=== PATIENT | female | born 1950 | race Two or more races ===

== ENCOUNTER → 2022-07-31 11:26 | Outpatient (BNVA) | payer MEDICARE, OTHER, SELFPAY | PROVIDERS: PCP Internal Medicine; Visit Provider Student in an Organized Health Care Education/Training Program | DX: M35.01 Sjogren syndrome with keratoconjunctivitis (principal); M81.0 Age-related osteoporosis without current pathological fracture; R00.2 Palpitations; Z79.899 Other long term (current) drug therapy | CPT/HCPCS: 99202 ==

== ENCOUNTER 2022-08-22 12:59 | Outpatient (REF) | payer MEDICARE, OTHER, SELFPAY ==
--- NOTE | 2022-08-22 17:18 | PFT_ITS ---
FLOWS: FEV1 83% of predicted at 1.68 L. FVC 78% of predicted at 2.10 L. FEV1 to FVC ratio of 0.80. The patient declined bronchodilator testing. LUNG VOLUMES: Total lung capacity 95% of predicted at 4.62 L. Residual volume 114% of predicted at 2.52 L. Slow vital capacity 79% of predicted at 2.10 L. Expiratory reserve volume 92% of predicted at 0.53 L. Diffusion capacity is mildly decreased, diffusion capacity corrects to normal after adjustment for alveolar ventilation. IMPRESSION: No obstructive or restrictive ventilatory defect. The patient declined bronchodilator testing. Essentially normal pulmonary function test. MD LILLY Salazar/MODL / [id number]
== END 2022-08-22 13:00 | disposition home or self-care (01) ==
LOC: HO.RESP 12:59
PROVIDERS: PCP Internal Medicine; Visit Provider Student in an Organized Health Care Education/Training Program
DX: R06.02 Shortness of breath (principal); M35.01 Sjogren syndrome with keratoconjunctivitis
CPT/HCPCS: 94010; 94727; 94729

== ENCOUNTER 2022-08-26 12:28 | Outpatient (REF) | payer MEDICARE, OTHER, SELFPAY ==
[2022-08-26 12:53] LABS: MANUAL DIFF FLAG NO
[2022-08-26 13:55] LABS: Appearance Urine Clear; Color Urine Yellow; Glucose Urine UA Negative (Negative); Leukocyte Esterase Urine Small (1+) (Negative); Nitrite Urine Negative (Negative); UMIC TRIGGER UA YES; Urine Blood Negative (Negative); Urine Ketones Negative (Negative); Urine Protein Negative (Neg-Trace)
[2022-08-26 14:02] LABS: Basophils Percent Auto 0.5 % (0-2); Eosinophils Absolute Auto 0.1 X10*3/uL (0.0-0.4); Eosinophils Percent Auto 1.1 % (0-4); Hematocrit 34.9 % (37.0-47.0); Hemoglobin 11.4 g/dl (12.0-16.0); Imm Gran Abs Auto 0.01 X10*3/uL (0.00-0.03); Imm Gran Pct Auto 0.2 % (0.0-0.4); Lymphocytes Percent Auto 30.6 % (20-40); Mean Corpuscular HGB Conc 32.7 g/dl (31.0-35.0); Mean Corpuscular Hemoglobin 28.1 pg (27.0-33.0); Mean Corpuscular Volume 86.2 fL (80.0-98.0); Mean Platelet Volume 11.1 fL (9.4-12.3); Monocytes Absolute Auto 0.5 X10*3/uL (0.1-1.2); Monocytes Percent Auto 8.3 % (2-11); Neutrophils Absolute Auto 3.8 x10*3/uL (2.0-8.3); Neutrophils Percent Auto 59.3 % (45-73); Platelet Count 189 X10*3/uL (160-400); Red Blood Count 4.05 X10*6/uL (4.20-5.50); Red Cell Distribution Width 12.4 % (11.0-16.0); White Blood Count 6.4 X10*3/uL (4.8-10.8)
[2022-08-26 14:03] LABS: Bacteria Urine None Seen (None Seen); Hyaline Casts Urine 0-2 /LPF (0-2); RBC Urine 0-2 /HPF (0-2); Squamous Epithelial Cell Urine 0-2 /HPF (0-2); WBC Urine 0-5 /HPF (0-5)
[2022-08-26 14:37] LABS: Creatinine Urine 60.61 mg/dL; Total Protein Urine Random < 7 mg/dL (<12)
[2022-08-26 14:42] LABS: Alanine Aminotransferase 10 U/L (0-31); Albumin Level 3.9 g/dL (3.5-5.0); Alkaline Phosphatase 62 U/L (39-117); Anion Gap 8 (12-20); Aspartate Amino Transferase 14 U/L (5-31); Bilirubin Total 0.4 mg/dL (0.0-1.0); Blood Urea Nitrogen 17 mg/dL (9-16); C Reactive Protein < 0.10 mg/dL (< or = 0.50); Calcium 9.6 mg/dL (8.4-10.2); Carbon Dioxide 28 mmol/L (22-29); Chloride 104 mmol/L (96-108); Estimated Glomerular Filt Rate 48; Glucose Random 74 mg/dL (60-115); Potassium 4.2 mmol/L (3.3-5.1); Rheumatoid Factor < 13.0 IU/mL (<15.0); Sodium 136 mmol/L (135-145); Total Protein 6.9 g/dL (6.5-8.0)
[2022-08-26 14:45] LABS: Erythrocyte Sedimentation Rate 16 MM/HR (0-20)
[2022-08-26 14:56] LABS: Thyroid Stimulating Hormone 2.29 uIU/mL (0.32-4.0)
[2022-08-27 13:24] LABS: Anti DNA DS Antibody 9 IU/mL; Antibody to SS-A Antigen <1.0 NEG AI (<1.0 NEG); Antibody to SS-B Antigen 3.3 POS AI (<1.0 NEG); SM/Ribonucleoprotein Ab <1.0 NEG AI (<1.0 NEG); Smith Protein <1.0 NEG AI (<1.0 NEG)
[2022-08-27 13:58] LABS: Complement C3 99 mg/dL (83-193)
[2022-08-27 15:24] LABS: Anti Nuclear Antibody Screen NEGATIVE (NEGATIVE)
[2022-08-28 04:59] LABS: HBS Num1 0.31 mIU/mL (0-7.99); HBsAGNum1 0.28 S/CO (0.00-0.99); Hepatitis A Antibody IgM 0.11 Index (0-0.79); Hepatitis B Core Antibody Nonreactive (Nonreactive); Hepatitis B Surface Antigen Negative (Negative); ~HepC Num1 0.09 S/CO (0.00-0.79); ~Hepatitis A Antibody IgM Nonreactive (Nonreactive); ~Hepatitis B Surface Antibody NONREACTIVE (Nonreactive); ~Hepatitis C Antibody Nonreactive (Nonreactive)
[2022-08-28 11:23] LABS: TS Negative Control Passed; TS Panel A 0; TS Panel B 0; TS Positive Control Passed; TSpotTB Negative (Negative)
[2022-08-28 12:33] LABS: IgA 237 mg/dL (70-320); IgG 1639 mg/dL (600-1540); IgM 89 mg/dL (50-300)
[2022-08-29 11:33] LABS: Cyclic Citrullinated Peptide <16 UNITS
[2022-08-31 13:54] LABS: Angiotensin Converting Enzyme 51.1 U/L (9-67)
[2022-09-03 10:12] LABS: Cryoglobulin, Qual NONE DETECTED ((NDT))
== END 2022-08-26 12:29 | disposition home or self-care (01) ==
LOC: HO.LAB 12:28
PROVIDERS: PCP Internal Medicine; Visit Provider Student in an Organized Health Care Education/Training Program
DX: M35.01 Sjogren syndrome with keratoconjunctivitis (principal); R53.83 Other fatigue; Z11.7 Encounter for testing for latent tuberculosis infection; Z11.59 Encounter for screening for other viral diseases; Z72.89 Other problems related to lifestyle
CPT/HCPCS: 36415; 80053; 81001; 82164; 82550; 82595; 82784; 84156; 84443; 85025; 85652; 86038; 86039; 86140; 86160; 86200; 86225; 86235; 86334; 86431; 86481; 86704; 86706; 86709; 86803; 87340

== ENCOUNTER → 2022-10-30 11:43 | Outpatient (BNVA) | payer MEDICARE, OTHER, SELFPAY | PROVIDERS: PCP Internal Medicine; Visit Provider Student in an Organized Health Care Education/Training Program | DX: M35.01 Sjogren syndrome with keratoconjunctivitis (principal); M81.0 Age-related osteoporosis without current pathological fracture; Z79.899 Other long term (current) drug therapy | CPT/HCPCS: 99212 ==

== ENCOUNTER 2023-05-22 12:01 | Outpatient (AMB) | payer MEDICARE, OTHER, SELFPAY ==
--- NOTE | 2023-05-22 12:06 | MHC.OFFVIS ---
Intake Vital Signs 05/22/23 12:07 Height 5 ft 2 in Weight 119 lb 4.321 oz BMI 21.8 BP 146/88 H Blood Pressure Location Rt brachial Position Sitting Pulse 66 Pulse Source Pulse Oximeter Temp 97.4 F Temp Source Skin Pulse Oximetry (%) 100 Intake Visit Reasons: Sjogren's Intake Note: Pt seen today fpr SS follow up Toggler Required: No Accompanied by: Self / Same As Patient Allergies Seasonal Allergies Allergy (Unknown, Verified 05/22/23 12:10) Unknown mold, dust Allergy (Unknown, Uncoded 05/22/23 12:10) Unknown Medication List - Last Reconciled 05/22/23 by Wolf Villegas MD famotidine 40 mg PO DAILY hydroxychloroquine (Plaquenil) 200 mg PO DAILY propranolol 20 mg PO TID trazodone 50 mg PO BEDTIME HPI HPI Comments History of Present Illness Details 72-year-old female with Sjogren's returns for follow-up. States that she had COVID infection last month and fully recovered. Remains on hydroxychloroquine 200 mg daily. States that she feels well overall. She has been having trouble sleeping recently. She only sleeps 5 hours. She states that her isn't doing too well recently and she believes it is causing her some anxiety. She used to follow-up with a therapist regularly but the therapist retired about a year ago. She takes trazodone nightly but she does not feel it helping her sleep. Her dry eyes and dry mouth are about the same. Symptoms are stable. she denies any chest pain, cough or shortness of breath. Recently she has been having bilateral lower back pain, nonradiating. Initial history: This is a 71-year-old female with a past medical history of Sjogren's diagnosed around 2019, osteoporosis on alendronate who presents for evaluation of Sjogren's disease. Patient used to follow up with Dr. Saeed but Dr. Saeed left the practice. Patient was started on hydroxychloroquine 2-3 years ago which did help with fatigue. Patient denied ever having any joint pains. She has used Biotene toothpaste, mouthwash is over the years and the dryness is better overall. She continues to have dry eyes however. She uses artificial tears 3 times a day but she continues to have some itchy eyess. Pilocarpine caused cholinergic side effects. Patient denies any fevers, weight loss. Denies Raynaud's. Denies any blood or frothy urine. Her main complaint today is difficulty falling asleep after waking up in the middle of the night. Patient used to have palpitations over the last few years however the became worse over the last few months. She was evaluated by paperhanger contractor and had Holter monitoring which showed PACs and episodes of tachycardia. Was recently started on propranolol. 2D echo was also recently completed. [facility]LY [facility] Medical History (Updated 05/22/23 @ 12:56 by Wolf Villegas MD) Insomnia Anxiety Hx of Sjogren's disease Palpitations Osteoporosis Diverticulosis GERD (gastroesophageal reflux disease) Panic attacks Hyperthyroidism Basal cell carcinoma Surgical History S/P removal of right ovary History of 2 sections Family History Father CHF (congestive heart failure) Mother Hypertension Hypothyroidism Social History Household Members: Spouse Household Members Other:: Son Alcohol intake: current Alcohol intake frequency: does not drink Patient Tobacco Use Status: Never used Tobacco Current occupational status: retired 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 Review of Systems Eyes Reports dry eyes Card Denies dyspnea Resp Denies dyspnea Skin/Breast Reports system reviewed and no additional complaints, except as documented Physical Exam Vital Signs: Last Vital Signs Temp 97.4 F 05/22/23 12:07 Pulse 66 05/22/23 12:07 BP 146/88 H 05/22/23 12:07 Pulse Ox 100 05/22/23 12:07 BMI result Body Mass Index 21.8 Const General: cooperative, healthy appearing, comfortable, no acute distress and well developed Nutritional Appearance: average body habitus and well nourished Orientation/consciousness: patient oriented x3 Limitations: no limitations HEENT Head: Yes normocephalic and Yes atraumatic Mouth: moist mucous membranes Resp Effort & Inspection: normal respiratory effort and able to speak in complete sentences GI Inspection: No distended Palpation (GI): Soft to palpation and nontender Back/Spine/Pelvis Other: No point tenderness upon palpation of her spine Negative straight leg raise test bilaterally Skin General skin exam: no rashes or lesions noted Neuro General: patient oriented x3 Extrem Other: No active synovitis Normal nailfold capillaroscopy Normal range of motion of upper extremities Normal gait Results Reviewed Results Reviewed: Labs 11/2018? KATHY 1-160 nucleolar SSA negative SSB 4.8? Sed rate 20 Labs 12/2021? Sed rate 10 CRP normal CBC unremarkable CMP unremarkable except for creatinine 1.1 GFR 53.1 TSH 2.96 Assessment & Plan Assessment & Plan (1) Sjogren syndrome with keratoconjunctivitis: Comment: dx 2019 (dry eyes, dry mouth, fatigue, KATHY 1-160 nucleolar, ++SSb) HCQ started 2018 Code(s): M35.01 - Sjogren syndrome with keratoconjunctivitis Plan: This is a 72-year-old female with Sjogren's disease presents for follow-up. Doing well on hydroxychloroquine 200 mg daily Spirometry done 09/02 unremarkable Continue hydroxychloroquine 200 mg daily Continue conservative measures for dryness, (Biotene toothpaste, Biotene mouthwash, artificial tears, sugar free lozenges...etc) patient had cholinergic side effects with pilocarpine Patient had burning in her eyes with Restasis. Continue artificial tears for now. Symptoms are stable. Follow-up in 1 year (2) Osteoporosis: Code(s): M81.0 - Age-related osteoporosis without current pathological fracture Qualifiers: Osteoporosis type: age-related Presence of current pathological fracture: without current pathological fracture Qualified Code(s): M81.0 - Age-related osteoporosis without current pathological fracture Plan: Managed by PCP. Currently on alendronate. (3) Insomnia: Code(s): G47.00 - Insomnia, unspecified Qualifiers: Insomnia type: psychophysiologic Qualified Code(s): F51.04 - Psychophysiologic insomnia Plan: Likely due to underlying anxiety. Advised patient to establish care with a psychotherapist. She is using trazodone 50 mg nightly without improvement and without worsening of sicca symptoms. Melatonin was not helpful. Advised patient to discuss with her PCP consider other medicines such as zolpidem. Plan I spent 29 minutes reviewing patient's chart, evaluating patient, counseling patient and documenting in the chart Coding Level of Care Code Est Pt Level 4 (21303) Diagnoses Sjogren syndrome with keratoconjunctivitis M35.01 Age-related osteoporosis without current pathological fracture M81.0 Osteoporosis type: age-related Presence of current pathological fracture: without current pathological fracture Psychophysiological insomnia F51.04 Insomnia type: psychophysiologic
[2023-05-22 12:07] VITALS: BP 146/88; PULSE 66; TEMP 36.3; O2SAT 100; BMI 21.8
== END 2023-05-22 12:36 | disposition home or self-care (01) ==
PROVIDERS: PCP Internal Medicine; Visit Provider Student in an Organized Health Care Education/Training Program
DX: M35.01 Sjogren syndrome with keratoconjunctivitis (principal); M81.0 Age-related osteoporosis without current pathological fracture; F51.04 Psychophysiologic insomnia
CPT/HCPCS: 99214

== ENCOUNTER → 2023-05-22 12:01 | Outpatient (BNVA) | payer MEDICARE, OTHER, SELFPAY | PROVIDERS: PCP Internal Medicine; Visit Provider Student in an Organized Health Care Education/Training Program | DX: M35.01 Sjogren syndrome with keratoconjunctivitis (principal); M81.0 Age-related osteoporosis without current pathological fracture; F51.04 Psychophysiologic insomnia | CPT/HCPCS: 99212 ==

== ENCOUNTER 2024-05-26 11:45 | Outpatient (AMB) | payer MEDICARE, OTHER, SELFPAY ==
--- NOTE | 2024-05-26 11:49 | MHC.OFFVIS ---
Vital Signs 05/26/24 11:52 Height 5 ft 2 in Weight 123 lb 3.814 oz BMI 22.5 BP 112/70 Blood Pressure Location Rt brachial Position Sitting Pulse 60 Pulse Source Pulse Oximeter Pulse Oximetry (%) 99 Oxygen Delivery Method Room Air Intake Visit Reasons: Sjogren's Intake Note: Patient presents for Sjogren's. Allergies Seasonal Allergies Allergy (Unknown, Verified 05/26/24 11:52) Unknown mold, dust Allergy (Unknown, Uncoded 09/11/23 07:08) Unknown Medication List - Last Reconciled 05/26/24 by Wolf Villegas MD famotidine 40 mg PO DAILY hydroxychloroquine (Plaquenil) 200 mg PO DAILY propranolol 20 mg PO TID trazodone 50 mg PO BEDTIME HPI Comments Details: 73-year-old female with Sjogren's returns for follow-up. She states that she feels about the same overall. Has been having more back pain recently. She had a back x-ray which showed arthritis. She went to 6 sessions of PT. It did not help much. It hurts with certain positions. It is not severe and does not radiate down her lower extremities. With regards to her sicca symptoms. They are about the same overall. She uses Biotene toothpaste. She did not find that Biotene mouthwash was helpful. Artificial tears 3 times a day. Denies any cough or shortness of breath. She states that she had a 2D echo recently ordered by her grinding and polishing laborer. She was told that she might have a leaky valve. Initial history: This is a 71-year-old female with a past medical history of Sjogren's diagnosed around 2019, osteoporosis on alendronate who presents for evaluation of Sjogren's disease. Patient used to follow up with Dr. Saeed but Dr. Saeed left the practice. Patient was started on hydroxychloroquine 2-3 years ago which did help with fatigue. Patient denied ever having any joint pains. She has used Biotene toothpaste, mouthwash is over the years and the dryness is better overall. She continues to have dry eyes however. She uses artificial tears 3 times a day but she continues to have some itchy eyess. Pilocarpine caused cholinergic side effects. Patient denies any fevers, weight loss. Denies Raynaud's. Denies any blood or frothy urine. Her main complaint today is difficulty falling asleep after waking up in the middle of the night. Patient used to have palpitations over the last few years however the became worse over the last few months. She was evaluated by grinding and polishing laborer and had Holter monitoring which showed PACs and episodes of tachycardia. Was recently started on propranolol. 2D echo was also recently completed. [facility] Medical History Insomnia Anxiety Hx of Sjogren's disease Palpitations Osteoporosis Diverticulosis GERD (gastroesophageal reflux disease) Panic attacks Hyperthyroidism Basal cell carcinoma Surgical History S/P removal of right ovary History of 2 sections Family History Father CHF (congestive heart failure) Mother Hypertension Hypothyroidism Social History Household Members: Spouse Household Members Other:: Son Alcohol intake: current Alcohol intake frequency: does not drink Patient Tobacco Use Status: Never used Tobacco Current occupational status: retired 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 Review of Systems Eyes Reports dry eyes Card Denies dyspnea Resp Denies dyspnea Musc Reports back pain Skin/Breast Reports system reviewed and no additional complaints, except as documented Physical Exam Vital Signs: Last Vital Signs Pulse 60 05/26/24 11:52 BP 112/70 05/26/24 11:52 Pulse Ox 99 05/26/24 11:52 Oxygen Delivery Method Room Air 05/26/24 11:52 BMI result Body Mass Index 22.5 Const General: cooperative, healthy appearing, comfortable, no acute distress and well developed Nutritional Appearance: average body habitus and well nourished Orientation/consciousness: patient oriented x3 Limitations: no limitations HEENT Head: Yes normocephalic and Yes atraumatic Mouth: moist mucous membranes Resp Effort & Inspection: normal respiratory effort and able to speak in complete sentences Auscultation: clear to auscultation bilaterally Cardio Rate: regular rate Rhythm: regular rhythm GI Inspection: No distended Palpation (GI): Soft to palpation and nontender Back/Spine/Pelvis Other: No point tenderness upon palpation of her spine Negative straight leg raise test bilaterally Skin General skin exam: no rashes or lesions noted Neuro General: patient oriented x3 Extrem Other: No active synovitis Normal nailfold capillaroscopy Normal range of motion of upper extremities Normal gait Results Reviewed Results Reviewed: Labs 11/2018? KATHY 1-160 nucleolar SSA negative SSB 4.8? Sed rate 20 Labs 12/2021? Sed rate 10 CRP normal CBC unremarkable CMP unremarkable except for creatinine 1.1 GFR 53.1 TSH 2.96 Assessment & Plan Assessment & Plan (1) Sjogren syndrome with keratoconjunctivitis: Comment: dx 2019 (dry eyes, dry mouth, fatigue, KATHY 1-160 nucleolar, ++SSb) HCQ started 2018 Code(s): M35.01 - Sjogren syndrome with keratoconjunctivitis Category: Medical Plan: This is a 73-year-old female with Sjogren's disease presents for follow-up. Doing well on hydroxychloroquine 200 mg daily Spirometry done 09/02 unremarkable Continue hydroxychloroquine 200 mg daily Continue conservative measures for dryness, (Biotene toothpaste, regular sips of water, per patient Biotene mouthwash did not help much) patient had cholinergic side effects with pilocarpine Patient had burning in her eyes with Restasis. Continue artificial tears for now. Symptoms are stable. Labs before next visit in 1 year. PFTs before next visit in 1 year. Patient states that she had a recent 2D echo by her grinding and polishing laborer. I asked patient to ask her grinding and polishing laborer's office to send me the result. Follow-up in 1 year (2) Long-term use of hydroxychloroquine: Code(s): Z79.899 - Other half-way (current) drug therapy Category: Medical Plan: Follows up regularly with Ophthalmology. Will records from patient's associate product integrity engineer (3) Back pain: Code(s): M54.9 - Dorsalgia, unspecified Category: Medical Qualifiers: Back pain location: low back pain Chronicity: chronic Back pain laterality: bilateral Sciatica presence: without sciatica Qualified Code(s): M54.50 - Low back pain, unspecified; G89.29 - Other chronic pain Plan: Minimal symptoms. Did not improved much with PT. Advised patient to try using a heating pad. Take Tylenol as needed. If no improvement, can consider pain management evaluation Plan I spent 26 minutes reviewing patient's chart, evaluating patient, ordering diagnostic workup, counseling patient and documenting in the chart Orders: Orders PFT pulmonary function test 04/11/25 M35. - Sjogren syndrome with keratoconjunctivitis, R06.02 - Shortness of breath Complete Blood Count Auto Diff 1 Year - Sjogren syndrome with keratoconjunctivitis Comprehensive Met. Panel 1 Year - Sjogren syndrome with keratoconjunctivitis Immunofixation Pnl, Serum 1 Year - Sjogren syndrome with keratoconjunctivitis Protein Electrophoresis, Serum 1 Year - Sjogren syndrome with keratoconjunctivitis C Reactive Protein 1 Year - Sjogren syndrome with keratoconjunctivitis Erythrocyte Sedimentation Rate 1 Year - Sjogren syndrome with keratoconjunctivitis Medications: Refilled hydroxychloroquine (Plaquenil) 200 mg PO DAILY 90 tabs 1RF Coding Level of Care Code Est Pt Level 4 (52153) Complex EM visit Add On G2211 Diagnoses Sjogren syndrome with keratoconjunctivitis Long-term use of hydroxychloroquine Z79.899 Chronic bilateral low back pain without sciatica M54.50; G89.29 Back pain location: low back pain Chronicity: chronic Back pain laterality: bilateral Sciatica presence: without sciatica
[2024-05-26 11:52] VITALS: BP 112/70; PULSE 60; O2SAT 99; BMI 22.5
== END 2024-05-26 12:15 | disposition home or self-care (01) ==
PROVIDERS: PCP Internal Medicine; Visit Provider Student in an Organized Health Care Education/Training Program
DX: M35.01 Sjogren syndrome with keratoconjunctivitis (principal); Z79.899 Other long term (current) drug therapy; M54.50 Low back pain, unspecified; G89.29 Other chronic pain
CPT/HCPCS: 99214; G2211

== ENCOUNTER → 2024-05-26 11:45 | Outpatient (BNVA) | payer MEDICARE, OTHER, SELFPAY | PROVIDERS: PCP Internal Medicine; Visit Provider Student in an Organized Health Care Education/Training Program | DX: M35.01 Sjogren syndrome with keratoconjunctivitis (principal); M54.50 Low back pain, unspecified; G89.29 Other chronic pain; Z79.899 Other long term (current) drug therapy | CPT/HCPCS: 99212 ==

== ENCOUNTER 2025-05-25 12:22 | Outpatient (AMB) | payer MEDICARE, OTHER, SELFPAY ==
--- NOTE | 2025-05-25 12:43 | MHC.OFFVIS ---
Vital Signs 05/25/25 12:44 Height 5 ft 2 in Weight 115 lb 8.356 oz BMI 21.1 BP 130/80 Blood Pressure Location Lt brachial Position Sitting Pulse 69 Pulse Source Pulse Oximeter Pulse Oximetry (%) 98 Oxygen Delivery Method Room Air Intake Visit Reasons: Sjogren's Intake Note: Patient presents for Sjogren's syndrome [id number] up. Accompanied by: Self / Same As Patient Allergies Seasonal Allergies Allergy (Unknown, Verified 05/25/25 12:43) Unknown mold, dust Allergy (Unknown, Uncoded 09/11/23 07:08) Unknown Medication List - Last Reconciled 05/25/25 by Leah Yu MD famotidine 40 mg PO DAILY hydroxychloroquine (Plaquenil) 200 mg PO DAILY propranolol 20 mg PO TID trazodone 50 mg PO BEDTIME HPI Comments Details: Patient is a 74-year-old female with GERD, Osteoporosis and Sjogren's syndrome here today for follow up Interval History: Patient last seen 05/26/[address] Villegas - On Hydroxychloroquine 200mg daily - She states that she feels about the same overall. Has been having more back pain recently. She had a back x-ray which showed arthritis. She went to 6 sessions of PT. It did not help much. - It hurts with certain positions. It is not severe and does not radiate down her lower extremities. - With regards to her sicca symptoms. They are about the same overall. She uses Biotene toothpaste. She did not find that Biotene mouthwash was helpful. Artificial tears 3 times a day. Denies any cough or shortness of breath. She states that she had a 2D echo recently ordered by her senior mechanical designer. She was told that she might have a leaky valve. Today - On Hydroxychloroquine 200mg daily - still with fatigue - dry eyes and dry mouth stable - no joint complaints Rheumatologic History: dx 2019 (dry eyes, dry mouth, fatigue, KATHY 1-160 nucleolar, ++SSb) HCQ started 2019 Trialed pilocarpine but had cholinergic side effects Restasis caused burning in her eyes Initial history: This is a 71-year-old female with a past medical history of Sjogren's diagnosed around 2019, osteoporosis on alendronate who presents for evaluation of Sjogren's disease. Patient used to follow up with Dr. Saeed but Dr. Saeed left the practice. Patient was started on hydroxychloroquine 2-3 years ago which did help with fatigue. Patient denied ever having any joint pains. She has used Biotene toothpaste, mouthwash is over the years and the dryness is better overall. She continues to have dry eyes however. She uses artificial tears 3 times a day but she continues to have some itchy eyess. Pilocarpine caused cholinergic side effects. Patient denies any fevers, weight loss. Denies Raynaud's. Denies any blood or frothy urine. Her main complaint today is difficulty falling asleep after waking up in the middle of the night. Patient used to have palpitations over the last few years however the became worse over the last few months. She was evaluated by senior mechanical designer and had Holter monitoring which showed PACs and episodes of tachycardia. Was recently started on propranolol. 2D echo was also recently completed. Current Rheumatology Medication(s): Hydroxychloroquine 200mg daily PFSH Medical History Insomnia Anxiety Hx of Sjogren's disease Palpitations Osteoporosis Diverticulosis GERD (gastroesophageal reflux disease) Panic attacks Hyperthyroidism Basal cell carcinoma Surgical History S/P removal of right ovary History of 2 sections Family History Father CHF (congestive heart failure) Mother Hypertension Hypothyroidism Social History Household Members: Spouse Household Members Other:: Son Alcohol intake: current Alcohol intake frequency: does not drink Patient Tobacco Use Status: Never used Tobacco Current occupational status: retired 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 Well appearing and in no apparent painful distress MSK Hands Right Hand: Able to make a fist. No swelling or tenderness to palpation of the MCPs, PIPs or DIPs. Left Hand: Able to make a fist. No swelling or tenderness to palpation of the MCPs, PIPs or DIPs. Wrists Right Wrist: Full ROM to flexion and extension. No swelling or TTP Left Wrist: Full ROM to flexion and extension. No swelling or TTP Elbows Right Elbow: Full ROM. No swelling or TTP. No TTP of the medial epicondyle. No TTP of the lateral epicondyle Left Elbow: Full ROM. No swelling or TTP. No TTP of the medial epicondyle. No TTP of the lateral epicondyle Shoulders Right shoulder: Full ROM. No swelling noted. No TTP of the AC joint. No TTP of the subacromial bursa. No TTP of the posterior shoulder Left shoulder: Full ROM. No swelling noted. No TTP of the AC joint. No TTP of the subacromial bursa. No TTP of the posterior shoulder Knees Right knee: No swelling noted. No TTP of the knee joint line. No TTP of pes anserine bursa Left knee: No swelling noted. No TTP of the knee joint line. No TTP of pes anserine bursa. Ankles Right ankle: Good ankle dorsiflexion and plantar flexion. No swelling. No TTP of the ankle joint Left ankle: Good ankle dorsiflexion and plantar flexion. No swelling. No TTP of the ankle joint Feet Right foot: Negative squeeze test Left foot: Negative squeeze test Tender points? No tenderness to palpation of the bilateral trapezius, supraspinatus, anterior costochondral junctions, bilateral suboccipital muscle insertions SKIN No rashes Vital Signs: Last Vital Signs Pulse 69 05/25/25 12:44 BP 130/80 05/25/25 12:44 Pulse Ox 98 05/25/25 12:44 Oxygen Delivery Method Room Air 05/25/25 12:44 BMI result Body Mass Index 21.1 Results Reviewed Results Reviewed: 03/23/25 VMG WBC 6.08 Hb 10.8 Plt 234 BUN 21 Cr 1.2 eGFR 46.9 AST 14 ALT 25 SPEP Normal ESR 33 H CRP 1.6 Assessment & Plan Assessment & Plan (1) Sjogren syndrome with keratoconjunctivitis: Comment: dx 2019 (dry eyes, dry mouth, fatigue, KATHY 1-160 nucleolar, ++SSb) HCQ started 2019 Code(s): M35.01 - Sjogren syndrome with keratoconjunctivitis Category: Medical Plan: #Sjogren's syndrome Patient is a 74-year-old female with Sjogren's syndrome here today for follow up. Stable on hydroxychloroquine. Unfortunately her fatigue, which is likely multifactorial, persists though she does say that after getting a good night sleep she is better. Discussed with patient that fatigue is a difficult symptom to treat and unfortunately immunosuppression does not help. In addition sicca symptoms from Sjogren's syndrome do not respond to immunosuppression but she can continue doing her conservative measures Plan - Hydroxychloroquine 200mg daily - patient is up-to-date with her ophthalmology - ECHO done with senior mechanical designer, not seen but was told to patient there was no concerns - F/u PFTs - RTC 1 year - Labs before visit: CBC, CMP, ESR, CRP, C3, C4, RF, Vit D, SPEP (2) Osteoporosis: Code(s): M81.0 - Age-related osteoporosis without current pathological fracture Category: Medical Qualifiers: Osteoporosis type: age-related Presence of current pathological fracture: without current pathological fracture Qualified Code(s): M81.0 - Age-related osteoporosis without current pathological fracture Plan: #Osteoporosis Patient is a 74-year-old female with history of osteoporosis. Has been a very long time since she has been on alendronate. No DEXA scan seen in chart. Need to update same Plan - DEXA - encouraged vitamin-D supplementation (3) Long-term use of hydroxychloroquine: Code(s): Z79.899 - Other assistant terminal manager (current) drug therapy Category: Medical Plan: #Long-term Use of Hydroxychloroquine Discussed with patient the risks and benefits of hydroxychloroquine in managing the rheumatic condition Benefits include: - Reduced pain, reduce mortality, maintenance of remission and reduction of flares Risks include: - GI upset, skin hyperpigmentation, retinal toxicity (especially after more than 5 years of use), myopathy Advised yearly ophthalmology visits Plan This is my 1st visit with the patient. I spent 40 minutes reviewing the record and labs, taking a history, examining the patient, discussing the treatment plan, ordering diagnostic work up and documenting in the medical record Orders: Orders XR DEXA axial skeleton Today M81.0 - Age-related osteoporosis without current pathological fracture Vitamin D 25-OH Total 1 Year E55.9 - Vitamin D deficiency, unspecified Medications: Refilled hydroxychloroquine (Plaquenil) 200 mg PO DAILY 90 tabs 4RF M35.01 - Sjogren syndrome with keratoconjunctivitis Coding Level of Care Code Est Pt Level 5 (35587) Complex EM visit Add On G2211 Diagnoses Sjogren syndrome with keratoconjunctivitis M35.01 Age-related osteoporosis without current pathological fracture M81.0 Osteoporosis type: age-related Presence of current pathological fracture: without current pathological fracture Long-term use of hydroxychloroquine Z79.899
[2025-05-25 12:44] VITALS: BP 130/80; PULSE 69; O2SAT 98; BMI 21.1
--- OUTSIDE RECORDS SUMMARY | 2025-05-25 15:38 | XMS_ITS | Encounter Summary ---
Author Organization [facility] Address [address] [facility] [address] [facility] [address] [place] [address] Phone Care Team Providers Care Paper Machine Operator Name Role Phone Padmini Wyman MD Primary Care Provide Codi Gaspar DO Primary Care Provider [phone] Lisy Rayo NP Primary Care Provider [phone] Kip Gastelum MD Primary Care Provider [phone] Encounter Details Date Type Department Care Team (Late st Contact Info) Description 05/07/2018 Procedure Pass [facility], Ct Scan - [address] [address] Social History Tobacco Use Types Packs/Day Years Used Date Smoking Tobacco: Never Assessed Comments Unknown Sex and Gender Information Value Date Recorded Sex Assigned at Not on file Legal Sex Female 10:05 PM EDT Gender Identity Not on file Sexual Orientation Not on file documented as of this encounter Plan of Treatment Not on file documented as of this encounter Visit Diagnoses Not on filedocumented in this encounter Care Teams Paper Machine Operator Relationship Specialty Start Date End Date Padmini Wyman MD PCP - General 08/14/17 08/25/18 Codi Obrien DO [address] [place] [address] PCP - General Internal Medicine 08/26/18 06/06/19 Lisy Rayo NP [address] [place] [address] PCP - General 06/07/19 03/08/20 Kip Gastelum MD [address] [place] [address] [email or web address] PCP - General Internal Medicine 03/09/20 documented as of this encounter Additional Source Comments The information contained in this document represents components of the legal health record. It is not the complete legal health record.[facility]
--- OUTSIDE RECORDS SUMMARY | 2025-05-25 15:38 | XMS_ITS | Encounter Summary ---
Author Organization [facility] Address [address] [place] [address] [place] [address] Phone Care Team Providers Care Computer Systems Auditor Name Role Phone Padmini Wyman MD Primary Care Provide Codi Gaspar DO Primary Care Provider [phone] Lisy Rayo NP Primary Care Provider [phone] Kip Gastelum MD Primary Care Provider [phone] Reason for Referral * Outpatient Procedure - Closed Specialty Diagnoses / Procedures Referred By Padmini shukla Referred To Contact Radiology Diagnoses Multinodular goiter Primary hyperthyroidism Procedures NM Thyroid Uptake and Scan I123 System, Provider Not In, PhD [facility] [employer] [address] [place] [address] Referral ID Status Reason Start Date Expiration Date Visits Re quested Visits Authorized [id number] Closed 08/17/2018 08/17/2019 1 1 Encounter Details Date Type Department Care Team (Latest Contact Info) Description 08/17/2018 Ancillary Orders [facility] Department [address] [place] [address] System, Provider Not In, PhD [employer] [address] [place] [id number] Multinodular goiter; Primary hyperthyroidism Social History Tobacco Use Types Packs/Day Years Used Date Smoking Tobacco: Never Assessed Comments Unknown Sex and Gender Information Value Date Recorded Sex Assigned at Not on file Legal Sex Female 10:05 PM EDT Gender Identity Not on file Sexual Orientation Not on file documented as of this encounter Plan of Treatment Not on file documented as of this encounter Results * NM Thyroid Uptake and Scan I123 (08/27/2018 9:08 AM EST) Anatomical Region Laterality Modality Neck Nuclear Medicine 08/27/2018 9:33 AM EST Impressions 08/27/2018 9:36 AM EST No evidence of hypoactive or hyperactive thyroid nodules. Thyroid uptake at 24 hours is within normal limits. POS - [id number] Narrative 08/27/2018 9:36 AM EST HISTORY: Hyperthyroidism. COMPARISON: There are no prior studies for comparison. DOSE: 294 uCi of I-123 FINDINGS: There is generally homogenous radiotracer distributed throughout both thyroid lobes. The lobes appear symmetric and do not appear grossly enlarged. No evidence of hypoactive or hyperactive nodules. Thyroid uptake at 24 hours equals 20.7% which is within the normal range. Procedure Note Jeffrey Ragsdale MD - 08/27/2018 HISTORY: Hyperthyroidism. COMPARISON: There are no prior studies for comparison. DOSE: 294 uCi of I-123 FINDINGS: There is generally homogenous radiotracer distributed throughout boththyroid lobes. The lobes appear symmetric and do not appear grosslyenlarged. No evidence of hypoactive or hyperactive nodules. Thyroid uptake at 24 hours equals 20.7% which is within the normalrange. IMPRESSION: No evidence of hypoactive or hyperactive thyroid nodules. Thyroid uptakeat 24 hours is within normal limits. POS - [id number] us Provider Not In System PhD IMG NM ENDOCRINE Nina varghese Result documented in this encounter Visit Diagnoses Diagnosis Multinodular goiter Nontoxic multinodular goiter Primary hyperthyroidism Multinodular goiter Nontoxic multinodular goiter Primary hyperthyroidism documented in this encounter Care Teams Computer Systems Auditor Relationship Specialty Start Date End Date Padmini Wyman MD PCP - General 08/14/17 08/25/18 Codi Obrien DO [address] [place] [address] PCP - General Internal Medicine 08/26/18 06/06/19 Lisy Rayo NP [address] [place] [address] PCP - General 06/07/19 03/08/20 Kip Gastelum MD [address] [place] [address] [email or web address] PCP - General Internal Medicine 03/09/20 documented as of this encounter Additional Source Comments The information contained in this document represents components of the legal health record. It is not the complete legal health record.[facility]
--- OUTSIDE RECORDS SUMMARY | 2025-05-25 15:38 | XMS_ITS | Encounter Summary ---
Author Organization [facility] Address [address] [place] [address] [place] [address] Phone Care Team Providers Care Legal Adviser Name Role Phone Padmini Wyman MD Primary Care Provide Codi Gaspar DO Primary Care Provider [phone] Lisy Rayo NP Primary Care Provider [phone] Kip Gastelum MD Primary Care Provider [phone] Reason for Referral * MRI/CAT Scan - Closed Specialty Diagnoses / Procedures Referred By Padmini shukla Referred To Contact Radiology Diagnoses Other acute sinusitis, recurrence not specified Procedures CT Face Romelia Hogue MD Phone: tel: fax: [email or web address] Referral ID Status Reason Start Date Expiration Date Visits Re quested Visits Authorized [id number] Closed 05/07/2018 05/07/2019 1 1 Encounter Details Date Type Department Care Team (Late st Contact Info) Description 05/07/2018 Ancillary Orders Virtual Department [address] [place] [address] Romelia Hogue MD [address] [place] [address] [email or web address] Other acute sinusitis, recurrence not specified Social History Tobacco Use Types Packs/Day Years Used Date Smoking Tobacco: Never Assessed Comments Unknown Sex and Gender Information Value Date Recorded Sex Assigned at Not on file Legal Sex Female 10:05 PM EDT Gender Identity Not on file Sexual Orientation Not on file documented as of this encounter Plan of Treatment Not on file documented as of this encounter Results * CT FACE WITHOUT CONTRAST (05/27/2018 11:31 AM EDT) Anatomical Region Laterality Modality Face Computed Tomogra phy 05/27/2018 1:49 PM EDT Impressions 05/27/2018 1:56 PM EDT Polypoid mucosal thickening or small mucous retention cyst on the right side of the sphenoid sinus. Remainder paranasal sinuses are essentially clear. Bilateral ostiomeatal units are patent. TOTAL CTDIvol: 45.8 mGy POS - [id number] Narrative 05/27/2018 1:56 PM EDT EXAM: CT FACE WITHOUT INTRAVENOUS CONTRAST COMPARISON: None TECHNIQUE: CT of the facial bones without contrast. Sagittal and coronal reformats generated. Manual dose reduction technique optimized for patient size and area of concern. FINDINGS: SOFT TISSUES: Soft tissues overlying the facial bones appear normal. NASAL BONES: The nasal bones are free of displaced fracture. PARANASAL SINUSES: The escalera of the maxillary, frontal, and ethmoid air cells and sphenoid sinus chambers are intact bilaterally. Polypoid mucosal thickening or small mucous retention cyst on the right side of the sphenoid sinus. Remainder paranasal sinuses are essentially clear. Bilateral ostiomeatal units are patent. Visualized mastoid air cells are clear. ORBITS: Globes and retrobulbar fat appear intact. Previous bilateral lens extraction. The roof, floor, superior and inferior orbital rims, and lateral wall of the orbits are intact bilaterally. Lamina papyracea are intact. REMAINING FACIAL BONES: Zygomatic arches are intact. No pterygoid plate fracture. TEMPOROMANDIBULAR JOINTS: Mild degenerative changes of the right mandibular condyle. Bilateral temporomandibular joints are congruent. Procedure Note Kassi Hannon MD - 05/27/2018 EXAM: CT FACE WITHOUT INTRAVENOUS CONTRAST COMPARISON: None TECHNIQUE: CT of the facial bones without contrast. Sagittal and coronalreformats generated. Manual dose reduction technique optimized for patientsize and area of concern. FINDINGS: SOFT TISSUES: Soft tissues overlying the facial bones appear normal. NASAL BONES: The nasal bones are free of displaced fracture. PARANASAL SINUSES: The escalera of the maxillary, frontal, and ethmoid aircells and sphenoid sinus chambers are intact bilaterally. Polypoidmucosal thickening or small mucous retention cyst on the right side of thesphenoid sinus. Remainder paranasal sinuses are essentially clear.Bilateral ostiomeatal units are patent. Visualized mastoid air cells areclear. ORBITS: Globes and retrobulbar fat appear intact. Previous bilateral lensextraction. The roof, floor, superior and inferior orbital rims, andlateral wall of the orbits are intact bilaterally. Lamina papyracea areintact. REMAINING FACIAL BONES: Zygomatic arches are intact. No pterygoid platefracture. TEMPOROMANDIBULAR JOINTS: Mild degenerative changes of the rightmandibular condyle. Bilateral temporomandibular joints are congruent. IMPRESSION: Polypoid mucosal thickening or small mucous retention cyst on the rightside of the sphenoid sinus. Remainder paranasal sinuses are essentiallyclear. Bilateral ostiomeatal units are patent. TOTAL CTDIvol: 45.8 mGy POS - [id number] Romelia Hogue MD IMG CT HEAD/NECK Fin al Result documented in this encounter Visit Diagnoses Diagnosis Other acute sinusitis, recurrence not specified Other acute sinusitis, recurrence not specified documented in this encounter Care Teams Legal Adviser Relationship Specialty Start Date End Date Padmini Wyman MD PCP - General 08/14/17 08/25/18 Codi Obrien DO [address] [place] [address] PCP - General Internal Medicine 08/26/18 06/06/19 Lisy Rayo NP [address] [place] [address] PCP - General 06/07/19 03/08/20 Kip Gastelum MD [address] [place] [address] [email or web address] PCP - General Internal Medicine 03/09/20 documented as of this encounter Additional Source Comments The information contained in this document represents components of the legal health record. It is not the complete legal health record.[facility]
--- OUTSIDE RECORDS SUMMARY | 2025-05-25 15:38 | XMS_ITS | Clinical Summary ---
Author Organization [facility] Address [address] [place] [address] [place] [phone] Phone Care Team Providers Care Animal Bounty Hunter Name Role Phone Kip Gastelum MD Primary Care Provider [phone]- [phone] Allergies Active Allergy Reactions Criticality Noted Date Comments Mold Extracts 02/14/2020 Other 10/27/2019 Ragweed, pollen Medications propranolol (INDERAL) 10 MG immediate release tablet Take 20 mg by mouth 3 (three) times a day. Active acetaminophen (TYLENOL) 325 mg tablet Take 650 mg by mouth daily as needed. Active hydroCHLOROthia zide (HYDRODIURIL) 12.5 MG tablet Take 12.5 mg by mouth daily. Take half tablet every other day Active hydrOXYchloroQU INE (PLAQUENIL) 200 mg tablet Take 200 mg by mouth daily. Active famotidine (PEPCID) 40 MG tablet Take 40 mg by mouth daily. Active traZODone (DESYREL) 50 MG tablet Take by mouth nightly at bedtime. 08/21/2023 Active Active Problems Problem Noted Date Diagnosed Date Vaginal discharge 02/14/2020 Assessment & Plan (02/14/2020 4:12 PM EDT): No signs of infection, expect just due to atrophy; can try to get same day appt as when she sees the d/c on wiping Breast lobular hyperplasia, atypical 02/14/2020 Overview (02/14/2020): 2015, on excised papilloma Assessment & Plan (02/14/2020 4:12 PM EDT): Recommend she ask med oncologist re dr Morelos's recommendations for annual mammo and breast exam in office, as this is not my area Sleep disturbance 05/31/2019 Sjogren's syndrome with keratoconjunctivitis sic ca 12/17/2018 Immunizations Immunization Administration Dates Next Due INFLUENZA, SPLIT VIRUS, TRIV ALENT W/ PRESERVATIVE IM 07/01/2011,05/16/2010,07/18/2009 Influenza High-Dose Trivalen t Preservative Free IM 06/17/2019 Influenza trivalent preserva tive free intradermal 05/19/2012 Influenza, Unspecified Formulation 06/24,07/19/2005,07/08/2003,2000 Td, unspecified formulation 09/17/2005 Zoster live 11/09/2010 Family History Medical History Relation Comments Heart failure Father CHF Heart disease Maternal Grandfather Hypertension Mother Osteoporosis Mother Arthritis Unspecified Relation Status Comments Brother Alive Father (Age 73) Maternal Grandfather Mother Unspecified Social History Tobacco Use Types Packs/Day Years Used Date Smoking Tobacco: Never Smokeless Tobacco: Never Alcohol Use Standard Drinks/Week Comments Never 0 (1 standard drink = 0.6 oz pur e alcohol) Education Answer Date Recorded Are you interested in more education? Not on miguel e 12/06/2022 Are you concerned about learning? Not on file 12/06/2022 No 12/06/2022 No 12/06/2022 Food Answer Date Recorded Within the past 6 months we worried whether our food would run out before we got money to buy more. Never True 01/15/2025 Within the past 6 months the food we bought just didn't last and we didn't have enough money to get more. Never True Residential Stability Answer Date Recor ded What is your housing situation today? I have shannan sing 01/15/2025 How many times have you move d in the past 12 months? Zero (I did not move) 01/15/2025 Paying for Meds Answer Date Recorded Do you have trouble paying for medicines? No 01/15/2025 Paying Utility Bills Answer Date Record ed Do you have trouble paying your heating or elect ricity bill? No 01/15/2025 Transportation Answer Date Recorded Has the lack of transportati on kept you from medical appointments or from getting medications? No 01/15/2025 Digital Access Answer Date Recorded No 01/15/2025 Yes 01/15/2025 Do you have reliable internet access at home? Ye s 01/15/2025 Do you have a device (e.g., phone, tablet, computer) with a working camera? Yes 01/15/2025 Intimate Partner Violence Answer Date R ecorded Are you denied basic needs s uch as food, clothing, or medical care? No 01/15/2025 In the past 12 months have y ou been in a relationship with a person who hurts, threatens, or tries to control you? No 01/15/2025 Are you denied basic needs s uch as food, clothing, or medical care? No 01/15/2025 In the past 12 months have y ou been in a relationship with a person who hurts, threatens, or tries to control you? No 01/15/2025 Comments No Sex and Gender Information Value Date Recorded Sex Assigned at Not on file Legal Sex Female 10:05 PM EDT Gender Identity Not on file Sexual Orientation Not on file Last Filed Vital Signs Vital Sign Reading Time Taken Comments Blood Pressure 140/86 01/15/2025 12:49 PM EDT Pulse 69 01/15/2025 12:49 PM EDT Temperature 36.4 C (97.6 F) 01/15/2025 11:16 AM EDT Respiratory Rate 18 01/15/2025 12:49 PM EDT Oxygen Saturation 100% 01/15/2025 12:49 PM EDT Inhaled Oxygen Concentration - - Weight 52.2 kg (115 lb) 01/15/2025 11:47 AM EDT Height 157.5 cm (5' 2 ) 01/15/2025 11:47 AM EDT Body Mass Index 21.03 01/15/2025 11:47 AM EDT Plan of Treatment Health Maintenance Due Date Last Done Comments LIPID PANEL 1948 DEPRESSION SCREENING 1960 HEPATITIS C SCREENING 1966 OSTEOPOROSIS SCREENING INITIAL (ONE-TIME) 2013 Adult Td,Tdap Booster 09/17/2015 09/17/2005 ZOSTER VACCINES (3 of 3) 05/01/2023 03/06/2023, 04/0 08/2010 INFLUENZA VACCINE (#1) 2025 , 05/05/2022, 06/05/2021, Additional history exists COVID-19 VACCINE (2024- season) 2025 09/02/2023, 05/05/2022, 11/13/2021, Additional history exists POTASSIUM LEVEL 01/15/2026 01/15/2025 PNEUMOCOCCAL VACCINES (50+ years) Completed 05/16/2015, 12/24/2013 SMOKING STATUS SCREENING (Once After 26 Yrs) Completed 10/23/2020 RSV VACCINE Completed 08/15/2023 HEPATITIS A VACCINES Aged Out No long er eligible based on patient's age to complete this topic HIB VACCINES Aged Out No longer eligi ble based on patient's age to complete this topic MENINGOCOCCAL VACCINES (ACWY) Aged Out No longer eligible based on patient's age to complete this topic MENINGOCOCCAL VACCINES (B) Aged Out N o longer eligible based on patient's age to complete this topic Medical Devices Not on file Procedures Procedure Name Priority Date/Time Associated Diagnosis Comments BASIC METABOLIC PANEL STAT 01/15/2025 11:50 AM EDT from Last 3 Months or Most Recently Relevant to Health Maintenance Results * (ABNORMAL) Basic metabolic panel (01/15/2025 11:50 AM EDT) SODIUM 135 133 - 146 mmol/L [facility] CHLORIDE 99 96 - 108 mmol/L [facility] POTASSIUM 4.3 3.3 - 5.1 mmol/L [facility] CO2 28 21 - 35 mmol/L [facility] BUN 20(H) 6 - 19 mg/dL [facility] CREATININE 1.20 0.5 - 1.5 mg/dL [facility] GLUCOSE 98 70 - 99 mg/dL [facility] CALCIUM 10.1 8.4 - 10.3 mg/dL [facility] EGFR 47(L) >59 mL/min/1.7 3m2 [facility] Comment:Estimated glomerular filtration rate calculated using the CKD-EPI refit equation. ANION GAP 12 10 - 20 mmol/L [facility] Blood 01/15/2025 11:5 0 AM EDT 01/15/2025 11:53 AM EDT us Damien Rojo MD LAB BLOOD ORDERABLES Final Resu lt [facility] [address] [place] [address] from Last 3 Months or Most Recently Relevant to Health Maintenance Insurance MEDICARE PART A & B [facility] MEDICARE SUPPLEMENT MEDICARE PART A & B [facility] [employer] MEDICARE SUPPLEMENT MEDICARE PART A & B [facility] MEDICARE SUPPLEMENT MEDICARE PART A & B [facility] MEDICARE SUPPLEMENT MEDICARE PART A & B [facility] MEDICARE SUPPLEMENT MEDICARE PART A & B [employer] MEDICARE SUPPLEMENT MEDICARE PART A & B [employer] MEDICARE SUPPLEMENT MEDICARE PART A & B [employer] MED[employer] SUPPLEMENT MEDICARE PART A & B [employer] MEDICARE SUPPLEMENT [place] [id number] Care Teams Animal Bounty Hunter Relationship Specialty Start Date End Date Kip Gastelum MD [address] [place] [phone] [email or web address] PCP - General Internal Medicine 03/09/20 Additional Source Comments The information contained in this document represents components of the legal health record. It is not the complete legal health record.[facility]
--- OUTSIDE RECORDS SUMMARY | 2025-05-25 15:38 | XMS_ITS | Encounter Summary ---
Author Organization [facility] Address [address] [place] [phone] Phone Care Team Providers Care Inside Contractor Sales Name Role Phone Kip Gastelum MD Primary Care Provider [phone]- [phone] Encounter Details Date Type Department Care Team (Late st Contact Info) Description 03/21/2021 Transcribe Orders [facility] [address] [place] [address] Kip Gastelum MD [address] [place] [phone] [email or web address] Social History Tobacco Use Types Packs/Day Years Used Date Smoking Tobacco: Never Smokeless Tobacco: Never Alcohol Use Standard Drinks/Week Comments Never 0 (1 standard drink = 0.6 oz pur e alcohol) Comments No Sex and Gender Information Value Date Recorded Sex Assigned at Not on file Legal Sex Female 10:05 PM EDT Gender Identity Not on file Sexual Orientation Not on file documented as of this encounter Plan of Treatment Not on file documented as of this encounter Visit Diagnoses Not on filedocumented in this encounter Care Teams Inside Contractor Sales Relationship Specialty Start Date End Date Kip Gastelum MD [address] [place] [phone] [email or web address] PCP - General Internal Medicine 03/09/20 documented as of this encounter Additional Source Comments The information contained in this document represents components of the legal health record. It is not the complete legal health record.[facility]
== END 2025-05-25 13:15 | disposition home or self-care (01) ==
LOC: HO.RHES 12:23
PROVIDERS: PCP Internal Medicine; Visit Provider Student in an Organized Health Care Education/Training Program
DX: M35.01 Sjogren syndrome with keratoconjunctivitis (principal); M81.0 Age-related osteoporosis without current pathological fracture; Z79.899 Other long term (current) drug therapy
CPT/HCPCS: 99215; G2211

== ENCOUNTER → 2025-05-25 12:22 | Outpatient (BNVA) | payer MEDICARE, OTHER, SELFPAY | PROVIDERS: PCP Internal Medicine; Visit Provider Student in an Organized Health Care Education/Training Program | DX: M35.01 Sjogren syndrome with keratoconjunctivitis (principal); M81.0 Age-related osteoporosis without current pathological fracture; Z79.899 Other long term (current) drug therapy | CPT/HCPCS: 99212 ==